=== PATIENT | female | born 1965 | race Caucasian/White ===

== ENCOUNTER 2019-03-03 18:41 | Emergency (ER) | payer BC ==
[~2019-03-03] VITALS: Wt 58.9 kg
[2019-03-03] MEDS ORDERED: ONDANSETRON 4 MG INJ IV STA (22:16)
[2019-03-03] MEDS ORDERED: SOD CHLORIDE 0.9% 500 ML IV STA (22:16)
[2019-03-03] MEDS ORDERED: morphine 2 MG INJ IV STA (22:16)
[2019-03-04] MEDS ORDERED: CIPR500T4 PO (02:24)
[2019-03-04] MEDS ORDERED: TRAM50TA2 PO (02:24)
--- NOTE | 2019-03-04 02:35 | ERD ---
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 Pain is mild to moderate intensity no exacerbating relieving factors. Denies any fevers or chills. She has had urgency frequency of urination. Denies any other current problems. Pain is mild to moderate intensity with no exacerbating alleviating factors. ROS All systems reviewed and are negative except as per history of present illness. Medications Home Meds Active Scripts Tramadol HCl (Tramadol HCl) 50 Mg Tablet, 50 MG PO Q4 PRN for PAIN, #20 TAB Prov:ANNELIESE MCNAIR 03/04/19 Ciprofloxacin Hcl* (Ciprofloxacin Hcl*) 500 Mg Tablet, 500 MG PO BID for 5 Days, TAB Prov:ANNELIESE MCNAIR 03/04/19 Allergies Allergies: Coded Allergies: No Known Drug Allergies (Verified Allergy, Unknown, 03/03/19) PMhx/Soc Medical and Surgical Hx: pt denies Medical Hx, pt denies Surgical Hx Hx Alcohol Use: No Hx Substance Use: No Hx Tobacco Use: No Smoking Status: Never smoker Physical Exam Vitals Vital Signs Date Temp Pulse Resp B/P (MAP) Pulse Ox O2 O2 Flow FiO2 Time Delivery Rate 03/03/19 71 16 112/80 98 Room Air 22:39 (91) 03/03/19 98.8 90 18 128/87 96 19:23 (101) Physical Exam Const: No acute distress Head: Atraumatic Eyes: Normal Conjunctiva ENT: Normal External Ears, Nose and Mouth. Neck: Full range of motion. No meningismus. Resp: Clear to auscultation bilaterally Cardio: Regular rate and rhythm, no murmurs Abd: Soft, non tender, non distended. Normal bowel sounds Skin: No petechiae or rashes Back: No midline or flank tenderness Ext: No cyanosis, or edema Neur: Awake and alert Psych: Normal Mood and Affect Result Diagram: 03/03/19222903/03/192229 Results 24 hrs Laboratory Tests Test 03/03/19 22:30 White Blood Count 9.7 10^3/ul Red Blood Count 4.35 10^6/ul Hemoglobin 13.2 g/dl Hematocrit 39.1 % Mean Corpuscular Volume 89.9 fl Mean Corpuscular Hemoglobin 30.3 pg Mean Corpuscular Hemoglobin Concent 33.8 g/dl Red Cell Distribution Width 12.8 % Platelet Count 354 10^3/UL Mean Platelet Volume 9.0 fl Immature Granulocytes % 0.200 % Neutrophils % 52.6 % Lymphocytes % 38.9 % Monocytes % 6.9 % Eosinophils % 1.1 % Basophils % 0.3 % Nucleated Red Blood Cells % 0.0 /100WBC Immature Granulocytes # 0.020 10^3/ul Neutrophils # 5.1 10^3/ul Lymphocytes # 3.8 10^3/ul Monocytes # 0.7 10^3/ul Eosinophils # 0.1 10^3/ul Basophils # 0.0 10^3/ul Nucleated Red Blood Cells # 0.0 10^3/ul Urine Color YELLOW Urine Clarity CLEAR Urine pH 5.0 Urine Specific [place] 1.019 Urine Ketones NEGATIVE mg/dL Urine Nitrite NEGATIVE mg/dL Urine Bilirubin NEGATIVE mg/dL Urine Urobilinogen NEGATIVE mg/dL Urine Leukocyte Esterase 2+ Belinda/ul Urine Microscopic RBC 1 /HPF Urine Microscopic WBC 17 /HPF Urine Bacteria FEW /HPF Urine Mucus FEW /HPF Urine Hemoglobin NEGATIVE mg/dL Urine Glucose NEGATIVE mg/dL Urine Total Protein NEGATIVE mg/dl Sodium Level 142 mmol/L Potassium Level 3.9 mmol/L Chloride Level 108 mmol/L Carbon Dioxide Level 26 mmol/L Anion Gap 8 Blood Urea Nitrogen 13 mg/dl Creatinine 0.79 mg/dl Est Glomerular Filtrat Rate mL/min > 60 mL/min Glucose Level 105 mg/dl Calcium Level 10.3 mg/dl Total Bilirubin 0.5 mg/dl Direct Bilirubin 0.00 mg/dl Indirect Bilirubin 0.5 mg/dl Aspartate Amino Transf (AST/SGOT) 22 IU/L Alanine Aminotransferase (ALT/SGPT) 21 IU/L Alkaline Phosphatase 122 IU/L Total Protein 7.8 g/dl Albumin 4.5 g/dl Globulin 3.30 g/dl Albumin/Globulin Ratio 1.36 Lipase 203 U/L Current Medications Medications Dose Sig/Javi Start Time Status Last (Trade) Ordered Route PRN Stop Time Admin Dose Reason Admin Sodium 500 ml @ Q1H STAT 03/03/19 DC 03/03/19 Chloride 500 mls/hr IV 22:16 22:34 03/03/19 23:15 Morphine 2 mg ONCE STAT 03/03/19 DC 03/03/19 Sulfate IV 22:16 22:34 (morphine) 03/03/19 22:18 Ondansetron 4 mg ONCE STAT 03/03/19 DC 03/03/19 HCl (Zofran IV 22:16 22:34 Inj) 03/03/19 22:18 Procedures/MDM Chest X-ray 1V Interpreted by me: Soft Tissue: No acute abnormalit ies Bones: No acute abnormalities Mediastinum/Cardiac Silhouette/Lungs: [No acute abnormalities]. Medical decision makin-year female with abdominal pain. Likely evidence of early pyelonephritis. As per clinical stable for trial of outpatient management. Patient's gastrointestinal symptoms have stabilized while in the department. No evidence of severe dehydration, sepsis, or surgical abdomen. Extensive discussion with family and patient that occult disease cannot be ruled out. 8 hour recheck for repeat abdominal exam is planned. Departure Diagnosis: Primary Impression: Abdominal pain Abdominal location: unspecified location Qualified Codes: R10.9 - Unspecified abdominal pain Condition: Stable Patient Instructions: Pyelonephritis, Female (Adult) ANNELIESE MCNAIR March 04, 2019 02:35
[2019-03-04 02:40] VITALS: BP 99/82; PULSE 63; RESP 16
== END 2019-03-04 02:40 | disposition home or self-care (01) ==
LOC: E/R 18:41
DX: R10.30 Lower abdominal pain, unspecified (principal)
CPT/HCPCS: 36415; 74176; 80053; 81001; 83690; 85025; 87086; 96374; 96375; 99285; J2270; J2405; J7040